=== PATIENT | male | born 1955 | race Caucasian/White ===

== ENCOUNTER 2023-10-17 23:24 | Inpatient (IN) | payer MEDICARE ==
[~2023-10-17] VITALS: Ht 175.3 cm; Wt 133.6 kg
[~2023-10-17 23:24] MED LIST: ALBU90OI INH; ASPI81CH PO; ATOR40TA PO; BENZ100A PO; CAND32 PO; CLOP75 PO; HYDROCODONE PO; LEVFLO500 PO; LEVSOD150 PO; MECL25 PO; NEBI10 PO; Nitrostat0.4 MG SL; PRED10 PO; [UNRECOGNIZED DRUG - OTHER] PO
[2023-10-17 23:52] LABS: BASOPHILS PERCENT AUTO 1 % (0-2); EOSINOPHILS ABSOLUTE AUTO 0.83 K/mm3 (0.00-0.68); EOSINOPHILS PERCENT AUTO 9 % (0-6); Hematocrit 42.9 % (37.0-53.0); Hemoglobin 14.7 g/dL (13.5-17.5); IMMATURE GRAN ABSOLUTE AUTO 0.02 K/mm3 (0.00-0.10); IMMATURE GRAN PERCENT AUTO 0 % (0-1); LYMPHOCYTES ABSOLUTE AUTO 3.15 K/mm3 (0.84-5.20); LYMPHOCYTES PERCENT AUTO 34 % (21-46); MONOCYTES PERCENT AUTO 12 % (4-13); Mean Corpuscular HGB 32.5 pg (26.0-34.0); Mean Corpuscular HGB Conc 34.3 g/dL (31.5-36.5); Mean Corpuscular Volume 95 fL (80-100); Mean Platelet Volume 9.2 fL (9.1-12.4); NEUTROPHILS ABSOLUTE AUTO 3.99 K/mm3 (1.96-9.15); NEUTROPHILS PERCENT AUTO 43 % (41-73); Platelet Count 369 K/mm3 (150-400); RDW Coefficient Variation 14.6 % (11.7-14.2); RDW Standard Deviation 51.3 fL (35.1-46.3); Red Blood Cell Count 4.52 M/mm3 (4.30-5.90); White Blood Cell Count 9.19 K/mm3 (4.00-11.30)
[2023-10-18] VITALS (13 sets, daily range): BP systolic 92–136; BP diastolic 65–124
[2023-10-18 00:16] LABS: Albumin, Blood 3.5 g/dL (3.4-5.0); Albumin/Globulin Ratio 0.9 (0.8-1.8); Bilirubin, Total 0.7 mg/dL (0.1-1.0); Bun/Creatinine Ratio 20.2 (12.0-20.0); Calcium, Blood 8.5 mg/dL (8.5-10.1); Creatinine, Blood 0.99 mg/dL (0.60-1.20); Globulin, Blood 4.1 g/dL (2.2-4.0); Potassium, Blood 4.1 mmol/L (3.5-5.5); Total Protein, Blood 7.6 g/dL (6.4-8.2)
[2023-10-18] MEDS ORDERED: Nitroglycerin 0.4 MG SUBL SL PRN (01:40)
[2023-10-18] MEDS ORDERED: Ondansetron HCl 2 MG / ML 2ML Vial IV PRN (01:45)
[2023-10-18] MEDS ORDERED: Acetaminophen 325 MG TABLET PO PRN ×2 (01:45→20:30)
[2023-10-18] MEDS ORDERED: Lactated Ringer's 1,000 ML IV SCH (02:00)
[2023-10-18 04:36] LABS: BASOPHILS ABSOLUTE AUTO 0.08 K/mm3 (0.00-0.23); BASOPHILS PERCENT AUTO 1 % (0-2); EOSINOPHILS ABSOLUTE AUTO 0.76 K/mm3 (0.00-0.68); EOSINOPHILS PERCENT AUTO 10 % (0-6); Hematocrit 43.6 % (37.0-53.0); Hemoglobin 14.8 g/dL (13.5-17.5); IMMATURE GRAN ABSOLUTE AUTO 0.01 K/mm3 (0.00-0.10); IMMATURE GRAN PERCENT AUTO 0 % (0-1); LYMPHOCYTES ABSOLUTE AUTO 2.48 K/mm3 (0.84-5.20); LYMPHOCYTES PERCENT AUTO 32 % (21-46); MONOCYTES ABSOLUTE AUTO 0.98 K/mm3 (0.16-1.47); MONOCYTES PERCENT AUTO 13 % (4-13); Mean Corpuscular HGB 32.5 pg (26.0-34.0); Mean Corpuscular HGB Conc 33.9 g/dL (31.5-36.5); Mean Corpuscular Volume 96 fL (80-100); Mean Platelet Volume 9.2 fL (9.1-12.4); NEUTROPHILS ABSOLUTE AUTO 3.46 K/mm3 (1.96-9.15); NEUTROPHILS PERCENT AUTO 45 % (41-73); Platelet Count 358 K/mm3 (150-400); RDW Coefficient Variation 14.6 % (11.7-14.2); RDW Standard Deviation 51.4 fL (35.1-46.3); Red Blood Cell Count 4.56 M/mm3 (4.30-5.90); White Blood Cell Count 7.77 K/mm3 (4.00-11.30)
[2023-10-18 05:19] LABS: Albumin, Blood 3.4 g/dL (3.4-5.0); Albumin/Globulin Ratio 0.8 (0.8-1.8); Bun/Creatinine Ratio 17.8 (12.0-20.0); Calcium, Blood 8.5 mg/dL (8.5-10.1); Creatinine, Blood 1.01 mg/dL (0.60-1.20); Globulin, Blood 4.1 g/dL (2.2-4.0); Potassium, Blood 4.2 mmol/L (3.5-5.5); Total Protein, Blood 7.5 g/dL (6.4-8.2)
--- NOTE | 2023-10-18 05:46 | NUR ---
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 PATIENT STATED THAT PAIN HAS BEEN GOINMG ON INTERMITTENTLY FOR FEW DAYS.NITROGLYCERIN WAS GIVEN ORDERED. PATIENT SAID THAT THE NITRO HELPED AND THAT HIS PAIN HAS SUBSIDED. PATIENT IS ON TELE RUNNING SINUS HALEY AT 58. PATIENT IS CURRENTL NPO.
[2023-10-18] MEDS ORDERED: Clopidogrel Bisulfate 75 MG Tab PO SCH (09:00)
[2023-10-18] MEDS ORDERED: Metoprolol Tartrate 25 MG Tab PO SCH (09:00)
[2023-10-18] MEDS ORDERED: Aspirin 81 MG Chew PO SCH (09:00)
[2023-10-18] MEDS ORDERED: Atorvastatin 40 MG Tab PO SCH (09:00)
[2023-10-18] MEDS ORDERED: Aminophylline 250MG / 10ML 10 ML Vial ONE (13:33)
[2023-10-18] MEDS ORDERED: Regadenoson 0.4 MG/5 ML SYRINGE ONE (13:34)
--- NOTE | 2023-10-18 15:59 | NUR ---
PATIENT ALERT AND ORIENTED TIMES FOUR. COMPLAINTS OF CHEST PAIN 0819 GAVE NITROGYLCERIN PER PHYSICAN ORDERS. CHEST PAINS RELIEVED. PATIENT HAD STRESS TEST AND NUCLEAR IMAGINING COMPLETED. VSS REMAINED STABLE. EKG COMPLETED.
[2023-10-18] MEDS ORDERED: Morphine Sulfate 4 MG/1 ML Injection IV ONE ×2 (17:25→18:00)
[2023-10-18] MEDS ORDERED: NS 1,000 ML IV ONE (17:37)
[2023-10-18] MEDS ORDERED: Heparin Sodium 5000 Units/ML 1ML MDV IV ONE (17:45)
[2023-10-18] MEDS ORDERED: Ticagrelor 90 MG TABLET PO STA (17:45)
[2023-10-18] MEDS ORDERED: Morphine Sulfate 4 MG/1 ML Injection ONE ×2 (17:56→17:58)
[2023-10-18] MEDS ORDERED: Heparin Sodium 1000 Units/ML 10ML MDV ONE (18:05)
[2023-10-18] MEDS ORDERED: Morphine Sulfate 4 MG/1 ML Injection IV PRN (18:05)
[2023-10-18] MEDS ORDERED: Verapamil HCL 2.5 MG/ML 2ML Injection ONE (18:05)
[2023-10-18] MEDS ORDERED: Nitroglycerin 2 MG/20 ML BTL ONE (18:06)
[2023-10-18] MEDS ORDERED: NS 2,000 ML IV ONE (18:06)
[2023-10-18] MEDS ORDERED: NS 250 ML IV ONE (18:06)
[2023-10-18] MEDS ORDERED: FentaNYL Citrate 50 MCG/ML 2 ML Injection ONE (18:13)
[2023-10-18] MEDS ORDERED: Midazolam HCl 1MG / ML 2ML Vial ONE (18:13)
--- NOTE | 2023-10-18 18:32 | NUR ---
CULVERT INSTALLER- RECIEVED A CALL FROM TELE STATING THE MONITOR IS SHOWING ST CHANGES, SHE CAN NOT MEASURE AND REQUESTING EKG TO CONFIRM. PT ON THE CALL LIGHT AT THE SAME TIME. WENT TO ASSESS AND THE PT STATES 10/10 CHEST PAIN, REQUESTING THAT MORPHINE NOW. NO ORDER FOR MORPHINE IN THE CHART. CALLED DR GASTELUM RECIEVED ORDER FOR STAT EKG AND MORPHINE. PT BECOMING AGGITATED R/T THE CHEST PAIN TRYING TO GET OOB, CALLED PRECISION ASSEMBLY INSPECTORBABITA ARMENDARIZ FOR ASSIST. BABITA TARANGO ARRIVED AT THE BEDSIDE WELL THEY COMPLETED THE EKG, ORDERS PLACED IN THE CHART FOR THE MORPHINE AND THE EKG. PER DR GASTELUM AFTER THE EKG GUS SHOULD BE CALLED TO COME READ IT. EKG SHOWS ACUTE OH AND OTHER CHANGES. SINGLE NITRO TAB ADMINISTERED AT 1730 PT BP DROPPED TO 60/40 AFTER. CP SHOWED NO IMPROVEMENT. RESULT OF EKG AND DROP IN BP AT THE SAME TIME. CALLED GUS, NO ANSWER. CALLED CULVERT INSTALLER. GUS RESPONDED WELL RN CUFFER JEFF COOL, ICU PRECISION ASSEMBLY INSPECTORBABITA AVILA, PCU CHARGE STACEY CABALLERO, MED RN SUKHDEEP RAMIREZ, PRECISION ASSEMBLY INSPECTORBABITA GEIGER, RT NAVEEN LANDA. PT PLACED ON O2, SECOND IV STARTED, FLUID BOLUS PULLED FROM CRASH CART, 1MG IV MORPHINE WAS GIVEN PER DR MIN ORDER, ADDITIONAL 4MG PULLED ON OVERRIDE, GIVEN IN TWO SEPARATE DOSES OF 2MG. PT RECIEVED A TOTAL OF 5MG. CARDIOLOGY DR Mary ARRIVED AT THE BEDSIDE AND TALKED TO THE PT ABOUT NEPHROLOGY NURSE PROCEDURE. PT SPOUSE AND SON WERE CALLED AND ARRIVED AT THE BEDSIDE PRIOR TO THE PT LEAVING FOR THE NEPHROLOGY NURSE. PT C/O PAIN RADIATING DOWN HIS LEFT ARM, ARCHING OFF THE BED, EVEN IN DROWSY STATE AFTER MORPHINE. NEPHROLOGY NURSE STAFF CALLED IN AND ARRIVED AT THE BEDSIDE. TOOK THE PT TO NEPHROLOGY NURSE. PT WAS PLACED ON THE ZOLE DURRING THE RAPID, ZOLE WENT WITH THE PT WELL THE TELE BOX (NOTIFIED [employer]) IV PUMP RUNNING THE FLUID BOLUS ALSO WENT WITH THE PT. PT STILL IN MODERATE DISTRESS AT THE TIME HE LEFT MED FLOOR. SPOUSE AND SON AT THE BEDSIDE AND WALKED DOWN TO NEPHROLOGY NURSE WITH THE PT.
[2023-10-18] MEDS ORDERED: Atropine Sulfate 0.1 MG/ML 10ML SYR ONE (18:36)
--- NOTE | 2023-10-18 18:46 | NUR ---
shift summary Patient had chest pain once during my shift. Advised Dr. Moore of his pain and he ordered a Stress Test. Patient given Nitroglycerin 1 tab during shift. Patient went to Imagining and returned with no chest pain. Also provided Dr. Moore with patient history of stent placement RCA. Patient was stable until late afternoon when he advised he had a 10 out of 10 chest pain. RN was notified from [facility]. She called the physician and called a rapid response.
[2023-10-18] MEDS ORDERED: Phenylephrine HCl 100 MCG/ML-NS 10MLSYR (1MG/10ML) ONE (18:59)
[2023-10-18] MEDS ORDERED: Furosemide 10 MG / ML 2ML Vial ONE (19:50)
[2023-10-18] MEDS ORDERED: Ticagrelor 90 MG TABLET PO SCH (21:00)
--- NOTE | 2023-10-18 21:34 | NUR ---
PT ADMITTED TO ICU FROM ENVIRONMENTAL ECONOMIST AT 2015 THIS EVENING. PT IS ALERT AND ORIENTED. PT MAEW AND STRONG AND EQUAL HOWEVER THERE IS A TR BAND TO RIGHT WRIST WITH 13CC OF AIR IN BALLOON. PT HAD WHEEZING LUNG SOUNDS INSP. AND EXPITORY T/O ALL LOBES. PT STATES THAT IS BASELINE FOR HIM AND THAT HE DOES HAVE COPD. PT HAS DISTENDED ABD. NORMAL BT'S. PT HAS GOOD RADIAL PALPABLE PULSES BUT DISTAL PEDAL AND POST TIBIAL PULSES ARE FAINT WHEN PALPATED. AND FEET BILATERALLY ARE COOL TO TOUCH WHICH PT ALSO STATES IS BASELINE FOR HIM. PT WAS EAGER TO VOID D/T ENVIRONMENTAL ECONOMIST GIVING HIM LASIX. HE VOIDED ONCE UPON ARRIVAL TO ICU. THEN A CONDOM CATH WAS PLACED ON HIM TO EASE HIS VOIDING ACTIVITY SINCE HE IS HAVING SUCH URGENCY. PT HAS 2 PIV'S RIGHT HAND AND LEFT ARM. BOTH FLUSH EASILY AND HAVE +BLOOD RETURN BACK. SPOUSE AND SON CAME TO BEDSIDE ALONG WITH HOSPITALIST RESIDENT TAMMI. PT DOES HAVE HIS GLASSES AT BEDSIDE TABLE AND GAVE HIM BACK HIS PHONE. HIS CLOTHES ARE IN A BACK AT TOP OF CUPBOARD. PT'S RHYTHM IS SINUS IN THE 60'S. BP STABLE AND PT IS AFEBRILE. PT IS NOT COMPLAINING OF ANY PAIN.
[2023-10-19] VITALS (13 sets, daily range): BP systolic 81–129; BP diastolic 62–82
[2023-10-19] MEDS ORDERED: NS 1,000 ML BAG IV SCH (01:10)
[2023-10-19 04:04] LABS: BASOPHILS ABSOLUTE AUTO 0.07 K/mm3 (0.00-0.23); BASOPHILS PERCENT AUTO 1 % (0-2); EOSINOPHILS ABSOLUTE AUTO 0.59 K/mm3 (0.00-0.68); EOSINOPHILS PERCENT AUTO 6 % (0-6); Hemoglobin 14.8 g/dL (13.5-17.5); IMMATURE GRAN ABSOLUTE AUTO 0.03 K/mm3 (0.00-0.10); IMMATURE GRAN PERCENT AUTO 0 % (0-1); LYMPHOCYTES ABSOLUTE AUTO 2.56 K/mm3 (0.84-5.20); LYMPHOCYTES PERCENT AUTO 26 % (21-46); MONOCYTES ABSOLUTE AUTO 1.13 K/mm3 (0.16-1.47); MONOCYTES PERCENT AUTO 12 % (4-13); Mean Corpuscular HGB 32.9 pg (26.0-34.0); Mean Corpuscular HGB Conc 34.4 g/dL (31.5-36.5); Mean Corpuscular Volume 96 fL (80-100); Mean Platelet Volume 9.2 fL (9.1-12.4); NEUTROPHILS ABSOLUTE AUTO 5.42 K/mm3 (1.96-9.15); NEUTROPHILS PERCENT AUTO 55 % (41-73); Platelet Count 349 K/mm3 (150-400); RDW Coefficient Variation 14.6 % (11.7-14.2); RDW Standard Deviation 51.7 fL (35.1-46.3)
[2023-10-19 04:29] LABS: Free Thyroxine 0.98 ng/dL (0.70-1.60)
[2023-10-19 04:30] LABS: Albumin, Blood 3.3 g/dL (3.4-5.0); Albumin/Globulin Ratio 0.9 (0.8-1.8); Bilirubin, Total 0.9 mg/dL (0.1-1.0); Bun/Creatinine Ratio 16.5 (12.0-20.0); Calcium, Blood 8.1 mg/dL (8.5-10.1); Creatinine, Blood 0.97 mg/dL (0.60-1.20); Globulin, Blood 3.8 g/dL (2.2-4.0); Total Protein, Blood 7.1 g/dL (6.4-8.2)
--- NOTE | 2023-10-19 05:21 | NUR ---
END OF SHIFT NOTE. PT HAD BEEN ABLE TO REST TONIGHT. HE HAD A TR BAND ON RIGHT WRIST BUT IT SINCE MIDDNIGHT HAS BEEN OFF. TEGADERM DRESSING IS IN PLACE AND ARM BOARD IS ON WRIST TO KEEP IT IMMOBILE. PT HAD GOOD SENSATION AND WARM TO DIGITS X 4 EXTREM PT'S PULSE DOWN TO 55 WHILE AT REST BUT IS AT 65 WHEN AWAKE. HIS LUNGS HAVE INSP AND EXPITORY WHEEZES THAT ARE MILD THIS AM BUT PRESENT STILL WHEN ASCULATED AND IS BASELINE FOR PATIENT. PT HAD PERIODS OF APNEA WHILE AT REST, HE DOES NOT USE A CPAP AT HOME. HIS OXYGENATION NEVER DROPPED BELOW 94% HOWEVER. PT HAS REMAINED AFEBRILE AND BP HAS BEEN 90'S-100'S SYSTOLIC. PT HAD NOT COMPLAINED OF ANY PAIN SINCE HE CAME BACK TO CERTIFIED NURSES AIDE THIS LAST EVENING. A CONDOM CATH WAS PLACED ON PT AND HE HAS BEEN ABLE TO URINATE A SIGNIFICANT AMOUNT WITHOUT URGENCY OR FRET OVER NIGHT. URINE IS NOW MORE CLEAR IN COLOR THE NIGHT PROGRESSED. FAMILY CAME TO PATIENTS BEDSIDE OVER NIGHT BUT SINCE HAS BEEN AT HOME. PT HAS HIS PHONE AND EYE GLASSES AT BEDSIDE TIME.
[2023-10-19] MEDS ORDERED: Furosemide 40 MG Tab PO SCH (09:00)
[2023-10-19] MEDS ORDERED: Furosemide 10 MG/ML 4ML Vial IV SCH (09:00)
[2023-10-19] MEDS ORDERED: Ticagrelor 90 MG TABLET PO SCH (09:00)
[2023-10-19] MEDS ORDERED: Enoxaparin 40 MG/0.4 ML SYR SC SCH (09:00)
--- NOTE | 2023-10-19 13:10 | NUR ---
arrial to medical floor patient arrived to medical floor from icu 7 via wheelchair at 1300 and transfered to chair independently. patient is alert and oriented x4. neuro is intact. denies chest pain/pressure, pain, or shortness of breath. pateinte right radial site is nontender, no hematoma, no bruising, there is old blood underneath the bandaide. patient informed this rn of not using right arm for 7 days per his articulation officer. tele sinus rhythm 78. spo2 >90% on room air. vital signs stable
--- NOTE | 2023-10-19 13:44 | NUR ---
Pt transferred to medical floor room number 333. Report given to RN assuming care. No acute needs at time of transfer, VS stable. All personal belongings taken to new room with patient. Transferred via wheelchair.
--- NOTE | 2023-10-19 15:31 | NUR ---
DAYSHIFT SUMMARY Patient alert & oriented x4. Denies pain or discomfort. Transferred from ICU. Med-tele, orders to keep telemetry in place, do not remove for any reason. MD wants constant cardiac monitoring. Vitals stable. Will continue plan of care.
--- NOTE | 2023-10-20 03:40 | NUR ---
SHIFT SUMMARY PT. IS A&O X4, ABLE TO MAKE HIS NEEDS KNOWN, AND AWAITING TO D/C THIS MORNING. PT DENIES PAIN, SOB, CHEST PAIN, OR DISCOMFORT. RIGHT ARM ELEVATED WITH PILLOWS. TELE: SINUS@70. NO ACUTE EVENTS/DISTRESS DURING THIS SHIFT. BED AT THE LOWEST POSITION, CALL LIGHT IN REACH. WILL HANDOFF TO THE INCOMING SHIFT NURSE.
[2023-10-20 04:11] VITALS: BP 130/62
[2023-10-20 05:12] LABS: BASOPHILS ABSOLUTE AUTO 0.07 K/mm3 (0.00-0.23); BASOPHILS PERCENT AUTO 1 % (0-2); EOSINOPHILS ABSOLUTE AUTO 0.74 K/mm3 (0.00-0.68); EOSINOPHILS PERCENT AUTO 7 % (0-6); Hemoglobin 15.1 g/dL (13.5-17.5); IMMATURE GRAN ABSOLUTE AUTO 0.03 K/mm3 (0.00-0.10); IMMATURE GRAN PERCENT AUTO 0 % (0-1); LYMPHOCYTES ABSOLUTE AUTO 2.16 K/mm3 (0.84-5.20); LYMPHOCYTES PERCENT AUTO 22 % (21-46); MONOCYTES ABSOLUTE AUTO 1.23 K/mm3 (0.16-1.47); MONOCYTES PERCENT AUTO 12 % (4-13); Mean Corpuscular HGB 32.3 pg (26.0-34.0); Mean Corpuscular HGB Conc 33.6 g/dL (31.5-36.5); Mean Corpuscular Volume 96 fL (80-100); Mean Platelet Volume 9.3 fL (9.1-12.4); NEUTROPHILS ABSOLUTE AUTO 5.78 K/mm3 (1.96-9.15); NEUTROPHILS PERCENT AUTO 58 % (41-73); Platelet Count 363 K/mm3 (150-400); RDW Coefficient Variation 14.5 % (11.7-14.2); Red Blood Cell Count 4.68 M/mm3 (4.30-5.90); White Blood Cell Count 10.01 K/mm3 (4.00-11.30)
[2023-10-20 05:36] LABS: Bun/Creatinine Ratio 19.2 (12.0-20.0); Calcium, Blood 8.3 mg/dL (8.5-10.1); Creatinine, Blood 1.04 mg/dL (0.60-1.20); Potassium, Blood 3.8 mmol/L (3.5-5.5)
[2023-10-20 08:09] VITALS: BP 137/84
[2023-10-20] MEDS ORDERED: Furosemide 40 MG Tab PO SCH (09:00)
[2023-10-20] MEDS ORDERED: FURO40 PO (11:31)
[2023-10-20] MEDS ORDERED: TICA90TA PO (11:32)
[2023-10-20] MEDS ORDERED: METO25 PO (11:32)
--- NOTE | 2023-10-20 12:12 | NUR ---
DISCHARGE NOTE PT DISCHARGED HOME AT APPROX 1200. PT PROVIDED W/ VERBAL AND WRITTEN INSTRUCTIONS AND REPORTED UNDERSTANDING. PT A&OX3, VSS, AMB IND, TOLERATING PO, VOIDING, AND DENIED PAIN. BELONGINGS WERE RETURNED AND PT ESCOURTED OUT BY HIS FAMILY.
== END 2023-10-20 12:00 | disposition home or self-care (01) | DRG 321 ==
LOC: ER 23:24 → ICUE 23:25 → MEDS 23:25 → ICUE 23:25 → ER 23:25 → MEDS 10-18 03:03 → ICUE 10-18 18:48 → MEDS 10-18 18:48 → ICUE 10-18 18:48 → MEDS 10-18 20:58 → ICUE 10-19 12:57 → MEDS 10-19 12:57
PROVIDERS: Emergency Medicine; Student in an Organized Health Care Education/Training Program; ADMIT Student in an Organized Health Care Education/Training Program
PROC: 027034Z Dilation of Coronary Artery, One Artery with Drug-eluting Intraluminal Device, Percutaneous Approach (ICD-10-PCS; principal; 2023-10-18)
PROC: B2111ZZ Fluoroscopy of Multiple Coronary Arteries using Low Osmolar Contrast (ICD-10-PCS; 2023-10-18)
DX: T82.855A Stenosis of coronary artery stent, initial encounter (principal); I21.19 ST elevation (STEMI) myocardial infarction involving other coronary artery of inferior wall; Z68.41 Body mass index [BMI] 40.0-44.9, adult; I25.10 Atherosclerotic heart disease of native coronary artery without angina pectoris; I10 Essential (primary) hypertension; R73.03 Prediabetes; E03.9 Hypothyroidism, unspecified; J44.9 Chronic obstructive pulmonary disease, unspecified; E66.9 Obesity, unspecified; I25.2 Old myocardial infarction; Z90.81 Acquired absence of spleen; Z79.890 Hormone replacement therapy; Z86.74 Personal history of sudden cardiac arrest; Z87.891 Personal history of nicotine dependence
CPT/HCPCS: 36415; 71045; 71046; 76937; 78451; 80048; 80053; 82947; 83036; 83735; 83880; 84439; 84443; 84484; 85025; 85347; 92978; 93005; 93010; 93017; 93458; 96374; 96375; 99152; 99153; 99285-25; A9270; A9500; C1725; C1753; C1769; C1874; C1887; C1894; C8929; C9606; G0378; J0280; J0461; J1644; J1650; J1940; J2250; J2270; J2371; J2785; J3010; J7030; J7050; Q9957; Q9967